=== PATIENT | male | born 1970 | race Caucasian/White ===

== ENCOUNTER 2022-07-04 16:13 | Emergency (ER) | payer MEDICAID, SELFPAY ==
[2022-07-04 16:30] VITALS: BP 214/114; PULSE 78; RESP 16; TEMP 36.8; O2SAT 97
--- NOTE | 2022-07-04 16:38 | ED.BACK ---
HPI - Back Pain/Injury General Chief Complaint: Back Pain/Injury Stated Complaint: sciatica nerve Time Seen by Provider: 07/04/22 16:38 Source: patient Mode of arrival: ambulatory Limitations: no limitations History of Present Illness HPI Narrative: 51-year-old male history of uncontrolled diabetes, CHF, and hypertension presented for complaints of right sided sciatica worsening past 3-4 days. Denies injury. He states the pain radiates the right posterior hip to the back of the knee and to the front of the lower leg down to the toes. Endorses pain is worse with walking, and brings him to tears. He has been using a cane. He endorses a history sciatica the same side, but is out of the muscle relaxers from that time. He took half of previously prescribed Tramadol and Tylenol which has improved his pain to 3/10. He denies numbness, tingling, weakness of the extremities. Denies chest pain palpitations, edema, shortness of breath, vomiting diarrhea, fevers or chills. States he has not taken any medications for chronic conditions in several months, as he is waiting for disability insurance. Does not have PCP. Related Data Home Medications Medication Instructions Recorded Confirmed No Home Medications 07/04/22 07/04/22 Allergies Allergy/AdvReac Type Severity Reaction Status Date / Time tetracycline Allergy Hives Verified 07/04/22 16:24 Review of Systems Review of Systems: CONSTITUTIONAL: Denies body aches, fever, chills EYES: Denies visual changes CARDIOVASCULAR: Denies chest pain, palpitations, or edema. RESPIRATORY: Denies cough or dyspnea. GASTROINTESTINAL: Denies abdominal pain, nausea, vomiting reports diarrhea. SKIN: Denies rash, itching, or wounds. MUSCULOSKELETAL: reports back/hip pain NEUROLOGIC: Denies headache, numbness, tingling, or weakness. All systems reviewed & are unremarkable except as noted in HPI and below [facility] Past Medical History Medical History (Updated 07/04/22 @ 17:03 by Sunita Denis APRN) CHF (congestive heart failure) Diabetes Hypertension Comments At time of signature, I have reviewed and agree with nursing past medical, surgical, social and family history unless otherwise noted. Please see nursing chart for further information. There is no relevant family history pertinent to the presenting complaint Exam Narrative: GENERAL: appears in pain; no acute distress. HEAD: Normocephalic, atraumatic. EYES: conjunctivae clear NECK: Supple. full ROM CHEST: Speaks in full sentences. No respiratory distress. HEART: Regular rate and rhythm. Normal and equal peripheral pulses. MUSC/EXT: No Vertebral point tenderness. BLEs with normal strength and sensation, normal range of motion; endorses right hip pain with walking. Nontender SI joint or hip tenderness with palpation. No open wounds, alignment normal, pulse palpable and equal bilaterally, skin warm, dry, pink. Capillary refill less than 3 seconds. Gait steady with cane. Trace bilateral pedal edema with brown discoloration to bilateral ankles. SKIN: Warm, dry, no rash. NEURO: Alert and oriented x3. Course Course Emergency Course: Patient is aware of diagnosis, understands and agrees to treatment plan. Anticipatory guidance given. Portions of this record may have been created with voice recognition software Level of Care: Express Care Visit Vital Signs Vital signs: Vital Signs Temperature 98.3 F 07/04/22 16:30 Pulse Rate 78 07/04/22 16:30 Respiratory Rate 16 07/04/22 16:30 Blood Pressure 214/114 H 07/04/22 16:30 Pulse Oximetry 97 07/04/22 16:30 Temperature 98.3 F 07/04/22 16:30 Pulse Rate 78 07/04/22 16:30 Respiratory Rate 16 07/04/22 16:30 Blood Pressure 214/114 H 07/04/22 16:30 Pulse Oximetry 97 07/04/22 16:30 Reviewed Transfer Transfered to: [facility] Transportation: Other (Private vehicle) Transfer rationale: Pt is agreeable to transfer. Requests transfer to [facility]
== END 2022-07-04 17:15 | disposition short-term general hospital (02) ==
PROVIDERS: Emergency Provider Nurse Practitioner Family
DX: I16.0 Hypertensive urgency (principal); M54.10 Radiculopathy, site unspecified; I11.0 Hypertensive heart disease with heart failure; I50.9 Heart failure, unspecified; E11.9 Type 2 diabetes mellitus without complications
CPT/HCPCS: 99212; G0463

== ENCOUNTER 2022-07-04 17:28 | Emergency (ER) | payer MEDICAID, SELFPAY ==
[2022-07-04 17:31] VITALS: BP 222/121; PULSE 77; RESP 16; TEMP 36.4; O2SAT 99
--- NOTE | 2022-07-04 17:54 | ECG_ITS ---
Measurements Intervals [place] Rate: 68 P: 30 RI: 160 QRS: -22 QRSD: 93 T: 119 QT: 435 QTc: 466 Interpretive Statements SINUS RHYTHM POOR R WAVE PROGRESSION, ANTERIOR LEADS LEFT VENTRICULAR HYPERTROPHY AND ST-T CHANGE BORDERLINE ECG NO PREVIOUS ECG AVAILABLE FOR COMPARISON Electronically Signed On 07-04-2022 18:45:57 CDT by Larry De La Cruz D.O.
--- NOTE | 2022-07-04 17:58 | ED.GENADULT ---
HPI - General Adult General Chief complaint: Recheck/Abnormal Lab/Rx Stated complaint: high blood pressure/sciatic pain Time Seen by Provider: 07/04/22 17:38 History of Present Illness HPI narrative: 51-year-old male presenting to the emergency department for evaluation of elevated blood pressure. Patient initially presented to urgent care for right hip pain/sciatica this been bothering him for the last 3 days. Patient is noncompliant with his blood pressure medication since January due to insurance issues. Patient states he takes multiple blood pressure medications but has not been taking them. Patient states he is also not been taking his metformin. Patient does not have a local primary care physician. Patient denies any associated chest pain or shortness of breath. Patient reports he is on disability for congestive heart failure, hypertension and diabetes. Related Data Home Medications Medication Instructions Recorded Confirmed amlodipine 5 mg tablet 5 mg PO DAILY 07/04/22 07/04/22 aspirin 81 mg tablet 81 mg PO DAILY 07/04/22 07/04/22 atorvastatin 40 mg tablet 40 mg PO DAILY 07/04/22 07/04/22 furosemide 20 mg tablet 20 mg PO DAILY 07/04/22 07/04/22 lisinopril 20 mg tablet 20 mg PO DAILY 07/04/22 07/04/22 metformin 500 mg tablet 500 mg PO BID 07/04/22 07/04/22 metoprolol succinate 50 mg 50 mg PO DAILY 07/04/22 07/04/22 tablet,extended release 24 hr omeprazole 20 mg tablet,delayed 20 mg PO DAILY 07/04/22 07/04/22 release spironolactone 25 mg tablet 25 mg PO DAILY 07/04/22 07/04/22 Allergies Allergy/AdvReac Type Severity Reaction Status Date / Time tetracycline Allergy Hives Verified 07/04/22 17:29 Review of Systems Review of Systems: All systems reviewed & are unremarkable except as noted in HPI and below PMF[facility] Past Medical History Medical History (Updated 07/04/22 @ 22:16 by Stephen Mcdaniels MD) CHF (congestive heart failure) Diabetes Hypertension Exam Narrative: APPEARANCE: Well appearing, no pain, no distress, well-nourished. HEAD: normocephalic, atraumatic. EYES: PERRLA/EOMI, conjunctivae clear. NECK: Supple. No adenopathy, no masses. RESPIRATORY: Airway patent, respirations nonlabored. Clear to auscultation bilaterally, no rales, rhonchi, wheezing. CARDIOVASCULAR: Regular rate and rhythm without murmurs rubs or gallops. ABDOMINAL: Soft, nontender, nondistended, normal bowel sounds MUSCULOSKELETAL: Moves all extremities. Strength/ROM intact, No edema, No calf tenderness. NEURO: Alert. Cranial nerves II through XII intact. SKIN: Warm, dry. Normal Color Course Course Emergency Course: Patient has previously been prescribed metoprolol, atorvastatin, metformin, lisinopril and furosemide. Patient had his last filled at [facility]. Patient was ordered p.o. metoprolol 100 mg, lisinopril 40 mg p.o. and Lasix 40 mg p.o.. These were the patient's home medications. Patient did have an episode where he had increased diaphoresis and had multiple bowel movements in the emergency department and stated he felt improved. Multiple times we offered the patient admission but patient was alert oriented and continued to decline to be admitted for hypertensive urgency. And patient was alert oriented denied any lightheaded or dizziness. Patient states he did feel better after having the bowel movement and denies any complaints. Patient states he was still having some sciatic pain but patient was advised on medication for pain control for home. Patient was not started on steroid due to his having uncontrolled diabetes. Patient was encouraged to have close follow-up with his primary care physician. Patient was alert oriented at time of discharge. Vital Signs Vital signs: Vital Signs Temperature 97.6 F 07/04/22 17:31 Pulse Rate 77 07/04/22 17:31 Respiratory Rate 16 07/04/22 17:31 Blood Pressure 222/121 H 07/04/22 17:31 Pulse Oximetry 99 07/04/22 17:31 Oxygen Delivery Room Air 07/04/22 17
[2022-07-04 18:12] LABS: Basophils Absolute Auto 0.1 K/mm3 (0.0-0.1); Basophils Percent Auto 0.7 % (0.2-1.2); Eosinophils Absolute Auto 0.4 K/mm3 (0-0.3); Eosinophils Percent Auto 4.8 % (0-4.4); Hematocrit 52.9 % (42.0-52.0); Hemoglobin 17.7 g/dL (14.0-18.0); Immature Granulocyte Absolute 0.03 K/mm3 (0.00-0.031); Immature Granulocyte Percent A 0.4 % (0-0.5); Lymphocytes Absolute Auto 2.11 K/mm3 (0.9-3.2); Lymphocytes Percent Auto 25.3 % (18.3-44.2); Mean Corpuscular HGB Conc 33.5 g/dl (32-36); Mean Corpuscular Hemoglobin 28.3 pg (26-34); Mean Corpuscular Volume 84.5 fl (80-100); Mean Platelet Volume 9.9 fl (7.4-10.4); Monocytes Absolute Auto 0.8 K/mm3 (0.1-0.6); Monocytes Percent Auto 9.7 % (2.6-8.5); Neutrophils Absolute Auto 4.9 K/mm3 (1.3-6.7); Neutrophils Percent Auto 59.1 % (45.5-73.1); Platelet Count Result 299 k/mm3 (150-375); Red Blood Count 6.26 M/mm3 (4.6-6.20); Red Cell Distribution Width 13.9 % (11.5-14.5); White Blood Count 8.3 K/mm3 (4.5-10.0)
[2022-07-04 18:23] LABS: Alanine Aminotransferase 42 U/L (6-50); Albumin Level 4.7 g/dL (3.5-5.1); Alkaline Phosphatase 51 U/L (38-126); Anion Gap 6 mmol/L (8-16); Aspartate Amino Transferase 40 U/L (17-59); Bilirubin,Total 0.8 mg/dL (0.2-1.3); Blood Urea Nitrogen 15 mg/dL (9-20); Calcium 9.3 mg/dL (8.4-10.2); Carbon Dioxide 28 mmol/L (22-30); Chloride 105 mmol/L (98-107); Estimated CRCL calculation 113 ml/min; Estimated Glomerular Filt Rate > 60; Glucose 125 mg/dL (65-110); Potassium 3.8 mmol/L (3.4-5.0); Sodium 139 mmol/L (137-145)
[2022-07-04 18:31] VITALS: BP 239/144; PULSE 68; RESP 16; O2SAT 98
[2022-07-04 18:46] VITALS: BP 212/135; PULSE 70; RESP 16; O2SAT 95
[2022-07-04] MEDS: lisinopriL 20 MG TABLET 40 MG PO (18:48)
[2022-07-04] MEDS: FUROSEMIDE 20 MG TABLET 40 MG PO (18:49)
[2022-07-04 18:50] VITALS: PULSE 76
[2022-07-04] MEDS: METOPROLOL SUCCINATE EXT REL 100 MG TABCR PO (18:50)
[2022-07-04] MEDS: HYDROcodone/acetaminophen (*CRX) 5-325 MG TABLET 1 TAB PO (18:52)
[2022-07-04] MEDS: CYCLOBENZAPRINE HCL 10 MG TABLET PO (18:55)
[2022-07-04] MEDS: amLODIPine BESYLATE 5 MG TABLET PO (18:56)
[2022-07-04 19:25] VITALS: BP 196/123; PULSE 70; RESP 15; O2SAT 99
[2022-07-04] MEDS: hydrALAZINE HCL 20 MG/ML VIAL 10 MG IV PUSH (19:54)
[2022-07-04] MEDS: SODIUM CHLORIDE 0.9% IV 1,000 ML 999 ML IV CONT (20:45)
--- NOTE | 2022-07-04 21:05 | PC.NURSE ---
Called and spoke with pt's . States she is on her way here.
[2022-07-04 21:07] LABS: Glucose Point of Care 183 mg/dl (65-105)
[2022-07-04 21:18] VITALS: BP 109/69; PULSE 55; RESP 18; O2SAT 98
== END 2022-07-04 21:20 | disposition home or self-care (01) ==
PROVIDERS: Emergency Provider Emergency Medicine
DX: I16.0 Hypertensive urgency (principal); I11.0 Hypertensive heart disease with heart failure; M54.10 Radiculopathy, site unspecified; T46.5X6A Underdosing of other antihypertensive drugs, initial encounter; T38.3X6A Underdosing of insulin and oral hypoglycemic [antidiabetic] drugs, initial encounter; Z91.120 Patient's intentional underdosing of medication regimen due to financial hardship; I50.9 Heart failure, unspecified; Z79.82 Long term (current) use of aspirin; E11.65 Type 2 diabetes mellitus with hyperglycemia; R94.31 Abnormal electrocardiogram [ECG] [EKG]; I51.7 Cardiomegaly
CPT/HCPCS: 36415; 80053; 82948; 85025; 93005; 96365; 96374; 99284; A9270; J0360; J7030

== ENCOUNTER 2022-07-04 22:35 | Observation (INO) | payer MEDICAID, SELFPAY ==
--- NOTE | ~2022-07-04 | CT_ITS ---
CT head without contrast Indication: Weakness Technique: Serial scans were obtained through the brain without the administration of contrast. Dose reduction technique was used on this scan by utilizing automated exposure control and iterative recon struction technique. The dose-length product (DLP) was 1362.00 mGy-cm. Findings: There is no evidence of intracranial hemorrhage, mass lesion, or acute infarct. The ventri cles and subarachnoid spaces are dilated, consistent with mild atrophy. Low attenuation regions are seen within the periventricular white matter bilaterally, likely representing changes from chronic mi crovascular ischemic disease. There is no evidence of edema, mass effect or midline shift. The visu alized paranasal sinuses and mastoid air cells are clear. Impression: No intracranial hemorrhage, mass, or acute infarct. Atrophy and chronic white matter changes, as above. Reviewed, dictated and finalized at location . Impression: No intracranial hemorrhage, mass, or acute infarct. Atrophy and chronic white matter changes, as above.
[2022-07-04 22:37] VITALS: BP 117/70; PULSE 61; RESP 18; TEMP 36.8; O2SAT 95
[2022-07-04 23:08] VITALS: BP 123/66; PULSE 59; RESP 16; O2SAT 97
[2022-07-04 23:10] VITALS: BP 123/66; PULSE 60; RESP 16; O2SAT 96
--- NOTE | 2022-07-04 23:36 | ED.RECABL ---
HPI - Recheck/Abnormal Lab/Rx General Chief Complaint: Recheck/Abnormal Lab/Rx <MATILDA Whyte Last Filed: 07/05/22 02:49> Stated Complaint: high blood pressure <MATILDA Whyte Last Filed: 07/05/22 02:49> Time Seen by Provider: 07/04/22 23:16 <MATILDA Whyte Last Filed: 07/05/22 02:49> Source: patient, family and old records reviewed <MATILDA Whyte Filed: 07/05/22 02:49> Mode of arrival: ambulatory <MATILDA Whyte Filed: 07/05/22 02:49> Limitations: no limitations <MATILDA Whyte Filed: 07/05/22 02:49> History of Present Illness HPI narrative: Patient is a 51 y/o male who presents to the ED with c/o blood pressure issues and right-sided sciatica. Patient reports having issues with right sciatic pain for the last several days. He was seen at a local urgent care yesterday for this and had blood pressures in the 200s. He was then sent here for further evaluation. Patient had been noncompliant with his home medications since the beginning of this year. He had a thorough work-up performed and was recommended to be admitted for hypertensive urgency. He was offered admission several times and declined admission. He was A&OX4, capable of making his own decisions, and his came and picked him up. Upon returning home, reports patient was weak, groggy, somewhat altered, unable to make it from the car to his house. Patient reports he was unable to walk due to the pain in his right low back radiating down his leg. He has not taken anything for pain today. Rx's for patient's home medications were sent to pharmacy. A prescription for [place] was also sent to patient's pharmacy, however he states he was unable to fill this due to the pharmacy being closed. Patient denies any bowel or bladder incontinence, numbness, fevers, chest pain, difficulty breathing, dizziness, lightheadedness, vision changes. Patient's blood pressure upon discharge was 196/123. Upon secondary arrival, blood pressure 109/69. <Rose Mary Parr PA-C - Last Filed: 07/05/22 02:49> Related Data Home Medications: Home Medications Medication Instructions Recorded Confirmed aspirin 81 mg tablet 81 mg PO DAILY 07/04/22 07/05/22 omeprazole 20 mg tablet,delayed 20 mg PO DAILY 07/04/22 07/05/22 release <Rose Mary Parr PA-C - Last Filed: 07/05/22 02:49> Allergies/Adverse Reactions: Allergies Allergy/AdvReac Type Severity Reaction Status Date / Time tetracycline Allergy Hives Verified 07/04/22 23:07 <MATILDA Whyte Last Filed: 07/05/22 02:49> Review of Systems Review of Systems: CONSTITUTIONAL: Denies fever, chills, or sweats. EYES: Denies visual changes. CARDIOVASCULAR: Denies chest pain. RESPIRATORY: Denies dyspnea. GASTROINTESTINAL: Denies abdominal pain, nausea, vomiting, or diarrhea. GENITOURINARY: Denies incontinence, dysuria or hematuria. MUSCULOSKELETAL: See HPI. NEUROLOGIC: See HPI. <Rose Mary Parr PA-C - Last Filed: 07/05/22 02:49> All systems reviewed & are unremarkable except as noted in HPI and below <Rose Mary Parr PA-C - Last Filed: 07/05/22 02:49> [facility] Past Medical History Medical History: Medical History (Updated 07/06/22 @ 11:59 by Sylwia Rahman APRN) CHF (congestive heart failure) Chronic diastolic heart failure Diabetes Hypertension <Rose Mary Parr PA-C - Last Filed: 07/05/22 02:49> Surgical History Surgical History: Surgical History (Updated 07/05/22 @ 00:48 by Rose Mary Parr PA-C) No pertinent past surgical history <Rose Mary Parr PA-C - Last Filed: 07/05/22 02:49> Family History Family History: Family History (Updated 07/05/22 @ 04:19 by Jovita Fatima RN) Mother Cancer Father Cancer <Rose Mary Parr PA-C - Last Filed: 07/05/22 02:49> Social History Social Hist
[2022-07-05] VITALS (12 sets, daily range): BP systolic 139–166; BP diastolic 72–93; PULSE 54–77; RESP 12–20; TEMP 36.1–36.4; O2SAT 95–100; BMI 41.1; BMI 40.1
--- NOTE | 2022-07-05 | ECHO_ITS ---
Patient Info Name: Ashok Dias Age: 51 years : 1970 Gender: Male Ht: 70 in Wt: 286 lbs BSA: 2.59 m2 HR: 61 bpm BP: 164 / 84 mmHg Technical Quality: Fair Exam Date: 07/05/2022 10:14 AM Exam Location: [facility] Pulmonary Exam Room: 250 Patient Status: Inpatient Admit Date: 07/05/2022 Staff Ordering Physician: Gwen Ludwig MD [employer] Project Manager: Precious Vargas RDCS Attending Provider: Gwen Ludwig MD Referring Physician: Oziel BLANCHARD; Exam Type: CA echo doppler color flow Study Info Indications - HTN Complete two-dimensional, color flow and Doppler transthoracic echocardiogram is performed. Summary 1. Complete two-dimensional, color flow and Doppler transthoracic echocardiogram is performed. 2. Left ventricular chamber dimension is normal. 3. Left ventricular systolic function is normal, estimated at 60-65%. 4. There is moderate concentric increased left ventricular wall thickness. 5. The left ventricular diastolic function is grade II diastolic dysfunction. 6. E/e' 20 is elevated. 7. Left atrial chamber dimension is mildly enlarged. 8. There is mild aortic valve sclerosis. 9. There is mild to moderate aortic valve regurgitation. 10. There is trace tricuspid valve regurgitation. 11. No pulmonary hypertension, estimated pulmonary arterial systolic pressure is 38 mmHg. 12. There is trivial pericardial effusion. Left Ventricle E/e' 20 is elevated. Left ventricular chamber dimension is normal. Left ventricular systolic function is normal, estimated at 60-65%. There is moderate concentric increased left ventricular wall thickness. The left ventricular diastolic function is grade II diastolic dysfunction. Right Ventricle Right ventricular chamber dimension is normal. Right ventricular systolic function is normal. Left Atria Left atrial chamber dimension is mildly enlarged. Right Atria Right atrial chamber dimension is normal. Aortic Valve The aortic valve is trileaflet. There is mild aortic valve sclerosis. There is no aortic valve stenosis. There is mild to moderate aortic valve regurgitation. Pulmonic Valve There is no pulmonic regurgitation. Mitral Valve There is no mitral valve stenosis. There is no mitral valve regurgitation. Tricuspid Valve There is trace tricuspid valve regurgitation. No pulmonary hypertension, estimated pulmonary arterial systolic pressure is 38 mmHg. Pericardium/Pleural There is trivial pericardial effusion. Inferior Vena Cava Normal inferior vena cava with >50% collapse upon inspiration consistent with normal right atrial pressure, 5 mmHg. Aorta The aortic root size at the sinus of Valsalva is normal. Left Ventricular Outflow Tract Name Value Normal LVOT 2D LVOT Diameter 2.1 cm LVOT Doppler LVOT Peak Gradient 7 mmHg LVOT Mean Gradient 4 mmHg LVOT VTI 28 cm LVOT VTI/AV VTI Ratio 0.9 LVOT Stroke Volume 92 ml LVOT CO 17.5 l/min LVOT CI 6.8 l/min/m2 Pulmonic Valve
[2022-07-05] MEDS: SODIUM CHLORIDE 0.9% IV 1,000 ML 999 ML IV CONT (00:37)
[2022-07-05] MEDS: LIDOCAINE 5% PATCH 1 PATCH TRANSDERM (02:19)
[2022-07-05] MEDS: KETOROLAC 30 MG/ML VIAL (*BKC) IV PUSH (02:20)
--- NOTE | 2022-07-05 02:42 | PM.IMHP ---
H&P: HPI History of Present Illness Date/Time: 07/05/22 02:42 Chief Complaint: Near-syncope Narrative: This is a 51-year-old male with past medical history significant for hypertension, morbid obesity, patient stop taking his medications in the last several months at least 5 months presents today to the emergency room after he was seen at a local urgent care for sciatica and in his vitals his systolic blood pressure was in the 200s in the emergency room patient received in the [facility] of therapy for hypertension and declined admission to the hospital his came to picking up however upon arrival to the house he was unable to exit the car was confuse and weak. Preliminary workup in the emergency room showed a blood pressure or of 109/69 patient denies any chest pain, palpitations, nausea, vomiting, no fevers, no rigors, no chills, no PND, no orthopnea. Patient is been placed in observation for further evaluation management and treatment. Review of Systems Review of Systems: Lower back pain, sciatica, uncontrolled hypertension, altered mental status. Constitutional: Constitutional: Denies chills, Denies fatigue, Denies fever(s), Denies lethargy, Denies malaise, Denies night sweats and Denies weakness Eyes: Eyes: Denies change in vision ENT: Denies dysphagia and Denies odynophagia Cardiovascular: Cardiovascular: Denies chest pain, Denies syncope, Denies leg edema, Reports lightheadedness, Denies radiating jaw, neck or arm pain and Denies palpitations Respiratory: Respiratory: Denies chest congestion, Denies cough, Denies excessive phlegm production and Denies dyspnea Gastrointestinal: Gastrointestinal: Denies abdominal pain, Denies dyspepsia, Denies heartburn, Denies nausea and Denies vomiting Genitourinary: Genitourinary: Reports no additional male genitourinary complaints and Reports as per HPI Musculoskeletal: Musculoskeletal: Reports back pain Integumentary/Breasts: Skin/Breast: Denies rash Neurologic: Reports confusion, Denies focal weakness and Denies Sensory deficit (Neuro) Psychiatric: Psychiatric: Reports no additional psychiatric complaints and Reports as per HPI Endocrine: Endocrine: Denies cold intolerance, Denies flushing, Denies heat intolerance, Denies polyphagia, Denies polydipsia and Denies palpitations Hematologic/Lymphatic: Hematologic/Lymphatic: Reports no additional hematologic/lymphatic complaints and Reports as per HPI Allergic/Immunologic: Allergic/Immunologic: Reports no additional allergic/immunologic complaints and Reports as per HPI [facility] Past Medical History Medical History (Updated 07/05/22 @ 04:49 by Gwen Ludwig MD) CHF (congestive heart failure) Diabetes Hypertension Surgical History Surgical History (Updated 07/05/22 @ 00:48 by Rose Mary Parr PA-C) No pertinent past surgical history Family History Family History (Updated 07/05/22 @ 04:19 by Jovita Fatima RN) Mother Cancer Father Cancer Social History Social History (Updated 07/05/22 @ 00:49 by Rose Mary Parr PA-C) Smoking status: Never smoker Alcohol intake: never Substance use: never Lack of Transportation: No Lack of Food: Sometimes True Current Housing: I Have Housing Concerned About Future Housing: YES Difficulty Paying Gas/Electric Bills: YES Difficulty Paying for Meds: YES Currently Unemployed: No Education: Bachelor's Degree Difficulty w/ Childcare or Family Care: No Spiritual care concerns: No Meds Home Medications and Allergies Home Medications Medication Instructions Recorded Confirmed Type amlodipine 5 mg tablet 5 mg PO DAILY 30 days #30 tabs 07/04/22 07/05/22 Rx aspirin 81 mg tablet 81 mg PO DAILY 07/04/22 07/05/22 History atorvastatin 40 mg tablet 40 mg PO DAILY 07/04/22 07/05/22 History cyclobenzaprine 10 mg tablet 10 mg PO BID PRN muscle spasm #20 07/04/22 07/05/22 Rx tabs furosemide 20 mg tablet 20 mg PO DAILY 07/04/22
--- NOTE | 2022-07-05 03:57 | ADMGEN ---
This patient, Ashok Dias, was admitted to Medical Room 250-01. Patient/family oriented to hospital policies and general routines including ID bracelet, bed and alarms, visiting hours, pain management, procedures, bathroom and other care routines, personal items, smoking policy, room service/diet, and visiting hours. Information on how to activate the Rapid Response Team has been discussed. Patient/Family are encouraged to report perceived risks to care and to ask questions if they do not understand what they are told or what they should do.
[2022-07-05 08:20] LABS: Glucose Point of Care 129 mg/dl (65-105)
[2022-07-05] MEDS: ASPIRIN 81 MG ENTERIC TABLET PO (08:56)
[2022-07-05] MEDS: ATORVASTATIN 40 MG TABLET PO (08:56)
[2022-07-05] MEDS: PANTOPRAZOLE 40 MG TABLET PO (08:56)
[2022-07-05] MEDS: METOPROLOL SUCCINATE EXT REL 50 MG TABCR PO (08:57)
[2022-07-05] MEDS: FUROSEMIDE 20 MG TABLET PO (08:57)
[2022-07-05] MEDS: lisinopriL 20 MG TABLET PO (08:58)
[2022-07-05] MEDS: SPIRONOLACTONE 25 MG TABLET PO (08:58)
[2022-07-05] MEDS: amLODIPine BESYLATE 5 MG TABLET PO (08:58)
--- NOTE | 2022-07-05 09:52 | PM.IMPN ---
Progress Note: A&P Assessment and Plan (1) Uncontrolled hypertension: Code(s): I10 - Essential (primary) hypertension Status: Acute Assessment and Plan: Blood pressure up to 239/144 in the emergency department that reportedly dropped to 109/69 after patient received Dexter and his home blood pressure medications. Patient reportedly has not been taking medications for several months due to moving, running out, and not having a PCP locally. Antihypertensives-amlodipine 5 mg daily, furosemide 20 mg daily, lisinopril 20 mg daily, spironolactone 25 mg daily, and metoprolol succinate 50 mg daily resumed overnight. Judiciously lower blood pressure and monitor neuro status to avoid hypoperfusion. Echocardiogram pending. Check lipid panel. discussed diet, lifestyle modifications, risks of uncontrolled hypertension, and compliance with medications. (2) Morbid obesity with BMI of 45.0-49.9, adult: Code(s): E66.01 - Morbid (severe) obesity due to excess calories; Z68.42 - Body mass index [BMI] 45.0-49.9, adult Status: Chronic Assessment and Plan: Lifestyle and diet modification. 1800 calorie restricted diet (3) Chronic lower back pain: Qualifiers: Back pain laterality: right Sciatica presence: with sciatica Sciatica laterality: sciatica of right side Qualified Code(s): M54.41 - Lumbago with sciatica, right side; G89.29 - Other chronic pain Code(s): M54.50 - Low back pain, unspecified; G89.29 - Other chronic pain Status: Chronic Assessment and Plan: Acute worsening of chronic lower back pain with radiculopathy to right lower extremity. Patient reports he has had previous issues with low back pain and sciatica to both right and left side in the past and previous imaging at an outside facility showed no spinal or vertebral abnormality. Will treat with supportive care- tylenol p.r.n. and Flexeril 5 mg Q 8 hours p.r.n. consider further imaging if pain worsens or does not improve with conservative management. No paresthesia or loss of bladder/bowel function. (4) T2DM (type 2 diabetes mellitus): Qualifiers: Diabetes mellitus snf insulin use: without snf use Diabetes mellitus complication status: without complication Qualified Code(s): E11.9 - Type 2 diabetes mellitus without complications Code(s): E11.9 - Type 2 diabetes mellitus without complications Status: Chronic Assessment and Plan: Patient reports history of diabetes previously treated with metformin immediate release 500 mg b.i.d. which he has not been taking due to GI complaints. Check A1c. Accu-Cheks AC and HS. Insulin sliding scale t.i.d. with meals. (5) Hypertensive encephalopathy: Code(s): I67.4 - Hypertensive encephalopathy Status: Acute Assessment and Plan: CT head reviewed and without acute findings. Continue to monitor neuro status. Appears at baseline. Previous confusion may have been secondary to narcotics given for lower back pain in the emergency department. Time Spent With Patient Time: 35 minutes time spent with patient assessment, patient education, review of labs, vitals and nursing documentation. All questions answered to the best of my ability. Subjective Date/time seen: 07/05/22 09:52 Interval history: Patient is a 51 old male hypertension, morbid obesity, sciatica and diabetes type 2 who is seen for follow-up of uncontrolled hypertension in near-syncope. Patient reports sciatica pain to his right lower extremity starting at his buttocks and extending down to his mid calf. He has had intermittent numbness to his right great toe that is not present at this time. He reports prior issues of sciatica that has been treated with Flexeril in the past. He recently moved in March and has been unpacking in his new home, with a lot of lifting and bending. He denies c/o chest pain, SOB, palpitations, diplopia, TOLENT[place], paresthesia to face or e
[2022-07-05] MEDS: CYCLOBENZAPRINE HCL 10 MG TABLET PO ×2 (11:14→17:43)
[2022-07-05 12:21] LABS: Glucose Point of Care 153 mg/dl (65-105)
[2022-07-05 17:04] LABS: Glucose Point of Care 184 mg/dl (65-105)
[2022-07-05] MEDS: traMADol HCL (*CRX) 25 MG TABLET PO (18:44)
[2022-07-05 20:06] LABS: Glucose Point of Care 156 mg/dl (65-105)
[2022-07-06] VITALS (7 sets, daily range): BP systolic 169; BP diastolic 91; PULSE 53–77; RESP 18; TEMP 36.4; O2SAT 97
[2022-07-06] MEDS: CYCLOBENZAPRINE HCL 10 MG TABLET PO (03:29)
[2022-07-06] MEDS: traMADol HCL (*CRX) 25 MG TABLET PO (03:29)
[2022-07-06 05:16] LABS: Hematocrit 50.7 % (42.0-52.0); Hemoglobin 16.5 g/dL (14.0-18.0); Mean Corpuscular HGB Conc 32.5 g/dl (32-36); Mean Corpuscular Hemoglobin 28.2 pg (26-34); Mean Corpuscular Volume 86.7 fl (80-100); Platelet Count Result 242 k/mm3 (150-375); Red Blood Count 5.85 M/mm3 (4.6-6.20); Red Cell Distribution Width 14.2 % (11.5-14.5); White Blood Count 7.6 K/mm3 (4.5-10.0)
[2022-07-06 05:22] LABS: Hemoglobin A1C 6.5 % (<5.7)
[2022-07-06 05:28] LABS: Anion Gap 5 mmol/L (8-16); Blood Urea Nitrogen 18 mg/dL (9-20); Calcium 8.6 mg/dL (8.4-10.2); Carbon Dioxide 28 mmol/L (22-30); Chloride 106 mmol/L (98-107); Cholesterol 117 mg/dL (0-200); Estimated CRCL calculation 102 ml/min; Estimated Glomerular Filt Rate > 60; Glucose 107 mg/dL (65-110); HDL Direct 50 mg/dL; Potassium 3.8 mmol/L (3.4-5.0); Sodium 139 mmol/L (137-145); Triglycerides 95 mg/dL (<150)
[2022-07-06 05:35] LABS: NT Pro B Type Natriuretic Pept 290 pg/mL (19.9-100)
[2022-07-06 05:39] LABS: LDL Cholesterol Direct 49 mg/dL
[2022-07-06 07:54] LABS: Glucose Point of Care 115 mg/dl (65-105)
--- NOTE | 2022-07-06 07:54 | PM.DS ---
DS: Admitting Diagnosis Discharge Date 07/06/2022 Admitting Diagnosis Uncontrolled hypertension Morbid obesity with BMI of 45.0-49.9, adult Chronic lower back pain T2DM (type 2 diabetes mellitus) Hypertensive encephalopathy DS: Discharge Diagnosis Discharge Diagnosis (1) Uncontrolled hypertension: Code(s): I10 - Essential (primary) hypertension Status: Acute Assessment and Plan: Blood pressure up to 239/144 in the emergency department that reportedly dropped to 109/69 after patient received Fletcher and his home blood pressure medications. Patient reportedly has not been taking medications for several months due to moving, running out, and not having a PCP locally. Antihypertensives-amlodipine 5 mg daily, furosemide 20 mg daily, lisinopril 20 mg daily, spironolactone 25 mg daily, and metoprolol succinate 50 mg daily resumed upon admission. Judiciously lower blood pressure and monitor neuro status to avoid hypoperfusion. Echocardiogram showed moderate LVH and grade 2 diastolic dysfunction. lipid panel with LDL 49, HDL 50 and triglycerides 95. discussed diet, lifestyle modifications, risks of uncontrolled hypertension, and compliance with medications. BP 150-169/90s still and lisinopril dose was increased to 40 mg PO daily on the day of discharge. He was counseled to check his blood pressure daily and record readings for PCP follow-up. (2) Morbid obesity with BMI of 45.0-49.9, adult: Code(s): E66.01 - Morbid (severe) obesity due to excess calories; Z68.42 - Body mass index [BMI] 45.0-49.9, adult Status: Chronic Assessment and Plan: Lifestyle and diet modification. 1800 calorie restricted diet (3) Chronic lower back pain: Qualifiers: Back pain laterality: right Sciatica laterality: sciatica of right side Sciatica presence: with sciatica Qualified Code(s): M54.41 - Lumbago with sciatica, right side; G89.29 - Other chronic pain Code(s): M54.50 - Low back pain, unspecified; G89.29 - Other chronic pain Status: Chronic Assessment and Plan: Acute worsening of chronic lower back pain with radiculopathy to right lower extremity. Patient reports he has had previous issues with low back pain and sciatica to both right and left side in the past and previous imaging at an outside facility showed no spinal or vertebral abnormality. Treated with supportive care- tylenol p.r.n., tramadol 25 mg Q6 hours p.r.n and Flexeril 5 mg Q 8 hours p.r.n. If patient does not improve with conservative care, consider further imaging outpatient. No paresthesia or loss of bladder/bowel function. He was counseled on activity restrictions and stretching exercises. (4) T2DM (type 2 diabetes mellitus): Qualifiers: Diabetes mellitus complication status: without complication Diabetes mellitus longterm insulin use: without terminal clerk use Qualified Code(s): E11.9 - Type 2 diabetes mellitus without complications Code(s): E11.9 - Type 2 diabetes mellitus without complications Status: Chronic Assessment and Plan: Patient reports history of diabetes previously treated with metformin immediate release 500 mg b.i.d. which he has not been taking due to GI complaints. A1c 6.5%. Accu-Cheks AC and HS. Insulin sliding scale t.i.d. with meals. Prescription for metformin XL 500 mg daily given at discharge. He was counseled on diet and weight loss. (5) Hypertensive encephalopathy: Code(s): I67.4 - Hypertensive encephalopathy Status: Acute Assessment and Plan: CT head reviewed and without acute findings. Neuro status at baseline. Previous confusion may have been secondary to narcotics given for lower back pain in the emergency department. (6) Chronic diastolic heart failure: Code(s): I50.32 - Chronic diastolic (congestive) heart failure Status: Acute Assessment and Plan: Chronic, grade 2 diastolic dysfunction, moderate LVH, EF 60-65
[2022-07-06] MEDS: lisinopriL 20 MG TABLET 40 MG PO (09:43)
[2022-07-06] MEDS: PANTOPRAZOLE 40 MG TABLET PO (09:43)
[2022-07-06] MEDS: METOPROLOL SUCCINATE EXT REL 50 MG TABCR PO (09:44)
[2022-07-06] MEDS: ASPIRIN 81 MG ENTERIC TABLET PO (09:44)
[2022-07-06] MEDS: amLODIPine BESYLATE 5 MG TABLET PO (09:44)
[2022-07-06] MEDS: ATORVASTATIN 40 MG TABLET PO (09:45)
[2022-07-06] MEDS: SPIRONOLACTONE 25 MG TABLET PO (09:45)
[2022-07-06] MEDS: FUROSEMIDE 20 MG TABLET PO (09:45)
[2022-07-06 12:03] LABS: Glucose Point of Care 155 mg/dl (65-105)
== END 2022-07-06 13:40 | disposition home or self-care (01) ==
LOC: ANHED 07-05 02:39 → ANH3MEDSUR 07-05 03:17 → ANH2MED 07-05 03:20
PROVIDERS: Nurse Practitioner Family; Admitting Provider Internal Medicine; Emergency Provider Physician Assistant; Visit Provider Internal Medicine
DX: I11.0 Hypertensive heart disease with heart failure (principal); I50.32 Chronic diastolic (congestive) heart failure; E66.01 Morbid (severe) obesity due to excess calories; Z68.41 Body mass index [BMI] 40.0-44.9, adult; M54.41 Lumbago with sciatica, right side; G89.29 Other chronic pain; E11.9 Type 2 diabetes mellitus without complications; I67.4 Hypertensive encephalopathy; Z91.148 Patient's other noncompliance with medication regimen for other reason; R09.89 Other specified symptoms and signs involving the circulatory and respiratory systems; R53.1 Weakness; I08.3 Combined rheumatic disorders of mitral, aortic and tricuspid valves; Z79.82 Long term (current) use of aspirin; Z79.891 Long term (current) use of opiate analgesic; Z79.84 Long term (current) use of oral hypoglycemic drugs; Z79.899 Other long term (current) drug therapy
CPT/HCPCS: 36415; 70450; 80048; 80053; 80061; 82948; 83036; 83880; 85025; 85027; 93005; 93306; 96361; 96365; 96374; 96375; 99285; A9270; G0378; G0379; J0131; J0360; J1885; J7030

== ENCOUNTER 2022-09-25 14:30 | Outpatient (RCR) | payer MEDICARE, OTHER, MEDICAID, SELFPAY | END 2022-11-18 11:23 | disposition home or self-care (01) | LOC: ANHDMC 14:30 | PROVIDERS: PCP Internal Medicine; Visit Provider Internal Medicine | DX: E11.9 Type 2 diabetes mellitus without complications (principal); I10 Essential (primary) hypertension; E66.01 Morbid (severe) obesity due to excess calories; Z68.42 Body mass index [BMI] 45.0-49.9, adult; Z91.148 Patient's other noncompliance with medication regimen for other reason; Z71.89 Other specified counseling | CPT/HCPCS: G0108; G0109 ==

== ENCOUNTER 2022-10-08 14:30 | Outpatient (RCR) | payer MEDICARE, OTHER, MEDICAID, SELFPAY ==
--- NOTE | 2022-08-27 15:07 | PTOPEVAL1 ---
Assessment and note entered by Myra Gamble, PT Evaluation Information Assessment Status Evaluation Diagnosis weakness, falls Onset March 2022 Subjective Information Patient referred to physical therapy due to weakness and history of falls. Patient reports 3 falls in the past month requiring paramedics to get him off the floor, most recent one occured when trying to pick object up off of floor. Patient reports that he feels very unsteady on his feet, is unable to get off the floor, and is unable to walk long distances in community at this time. Patient denies pain at this time. Patient has history of sciatic nerve pain, present at time of eval and states that when his sciatic pain flares up he will spend weeks in bed and then will have a decline in mobility following. Patients home has 6 steps to enter home however they have a basement with a full flight of stairs, basement has rooms with hobbies in it. ADDITIONAL INFO: Spoke to Jose at Dr Triplett office regarding BP readings 219/108 and 180/108 and than Patient reports he has not taken meds in over a week. Patient educated to begin taking medications and to check blood pressure before exercises and to hold exercise if blood pressure is greater than 180/90. Educated Patient and MD office that BP will be checked at start of every PT session and throughout to ensure safe progression of exercises. PT voices concern to MD office that exercise progression will be challenging if blood pressure is not controlled or medications are not taken. Reported Pain Level Pain Score 0: Self Report Assessment PT Clinical Summary Patient presents to physical therapy at this time due to weakness, history of falls, and history of sciatica. Upon initiation of evaluation patient reports poor med compliance as states he has not taken his medications in over a week. BP 219/108 and 180/108, denies blurry vision/headache/chest pain/word finding difficulties. Patient educated regarding importance of med compliance and daily BP checks, educated that PT will not be able to be provided if his blood pressure is not within a therapeutic range. Patient presents with BLE weakness B hip flexors 3-/5, B hip abductors 3/5. Patient exhibits tigh
--- NOTE | 2022-08-27 15:09 | OPREHPOC ---
Outpatient Therapy Plan of Care This is a Multidisciplinary Plan of Care that may contain components documented by all disciplines (PT, OT, and ST.) PT Problem 1 PT Problem #1 Knowledge Deficit PT Goal 1 Goal 1. Patient will demonstrate independence with home exercise program and hold exercise if BP greater than 180/90 PT Problem 2 PT Problem #2 Impaired Gait PT Goal 1 Goal 1. Patient will ambulate for 8 minutes in gym without AD due to improvements in endurance and strength with vitals in therapeutic range 2. Patient will ascend/descend 14 stairs with 1 rail and supervision with vital in therapeutic range PT Problem 3 PT Problem #3 Impaired Strength PT Goal 1 Goal 1. Patient will perform 15 reps supine bilateral straight leg raise. 2. Patient will perform 15 reps sidelying hip abduction. 3. Patient will perform bilateral single leg stance 10 seconds PT Problem 4 PT Problem #4 Impaired Balance PT Goal 1 Goal 1. Patient will report no falls. 2. 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 PT Problem 5 PT Problem #5 Impaired Range of Motion PT Goal 1 Goal 1. Patient will increase R ankle DF to 10 degrees
--- NOTE | 2022-09-20 13:52 | PCPTNOTE ---
Pt cancelled his appt today stating he can make it .
--- NOTE | 2022-09-24 13:52 | PCPTNOTE ---
Patient did not show for therapy appointment. Patient called and states he got his appointment times confused and would call to reschedule his re evaluation at later time/date.
--- NOTE | 2022-10-08 15:08 | PTOPDC ---
Assessment and note entered by Myra Gamble, PT Evaluation Information Assessment Status Discharge Diagnosis weakness, falls Onset March 2022 Subjective Information patient reports fair compliance with home exercises. patient reports improvements in strength and balance, reports he feels ready to DC from PT at this time. Reported Pain Level Pain Score 0: Self Report Assessment PT Clinical Summary Patient has been participating in PT services to address falls and generalized weakness. Patient has met all goals at this time, tolerating 8 minutes gait with independence, improved lower extremity strength and balance, and decreased reports of falls. Patient is able to independently ascend/descend stairs to enter home without difficulty. Patient has home exercise program at home and is instructed to continue 1-2 times daily . educated regarding benefit of walking as exercise. Plan of Care PT Services Indicated No
== END 2022-10-22 13:47 | disposition home or self-care (01) ==
LOC: ANHPT 14:30
PROVIDERS: PCP Internal Medicine; Visit Provider Internal Medicine
DX: M54.50 Low back pain, unspecified (principal); R29.898 Other symptoms and signs involving the musculoskeletal system; R53.1 Weakness; G89.29 Other chronic pain; Z91.81 History of falling
CPT/HCPCS: 97110; 97116; 97163; 97530; 99199

== ENCOUNTER 2022-12-05 14:05 | Outpatient (CLI) | payer OTHER, MEDICAID, SELFPAY ==
[2022-12-05 18:42] LABS: Alanine Aminotransferase 51 U/L (6-50); Albumin Level 3.9 g/dL (3.5-5.1); Alkaline Phosphatase 73 U/L (38-126); Anion Gap 6 mmol/L (8-16); Aspartate Amino Transferase 42 U/L (17-59); Bilirubin,Total 0.7 mg/dL (0.2-1.3); Blood Urea Nitrogen 14 mg/dL (9-20); Calcium 8.9 mg/dL (8.4-10.2); Carbon Dioxide 29 mmol/L (22-30); Chloride 100 mmol/L (98-107); Cholesterol 140 mg/dL (0-200); Estimated Glomerular Filt Rate > 60; Glucose 242 mg/dL (65-110); HDL Direct 57 mg/dL; Potassium 4.2 mmol/L (3.4-5.0); Sodium 135 mmol/L (137-145); Triglycerides 116 mg/dL (<150)
[2022-12-05 18:54] LABS: LDL Cholesterol Direct 62 mg/dL
[2022-12-05 20:01] LABS: MALB Creatinine Ratio 142.9 mg/g (0-30); Microalbumin Urine Random 117.2 mg/L (0-16.7)
[2022-12-05 20:43] LABS: Hemoglobin A1C 9.1 % (<5.7)
[2022-12-09 07:22] LABS: Apolipoprotein B 58 mg/dL (<90)
== END 2022-12-05 14:06 | disposition home or self-care (01) ==
LOC: ANHGOSHLAB 14:07
PROVIDERS: PCP Internal Medicine; Visit Provider Internal Medicine
DX: E11.9 Type 2 diabetes mellitus without complications (principal); E66.01 Morbid (severe) obesity due to excess calories; I50.32 Chronic diastolic (congestive) heart failure; Z68.42 Body mass index [BMI] 45.0-49.9, adult
CPT/HCPCS: 36415; 80053; 80061; 82043; 82172; 83036

== ENCOUNTER 2022-12-19 14:52 | Outpatient (RCR) | payer OTHER, MEDICAID, SELFPAY | END 2023-01-06 11:29 | disposition home or self-care (01) | LOC: ANHDMC 14:52 | PROVIDERS: PCP Internal Medicine; Visit Provider Internal Medicine | DX: E11.9 Type 2 diabetes mellitus without complications (principal); I10 Essential (primary) hypertension; E66.01 Morbid (severe) obesity due to excess calories; Z68.42 Body mass index [BMI] 45.0-49.9, adult; Z91.148 Patient's other noncompliance with medication regimen for other reason; Z71.89 Other specified counseling | CPT/HCPCS: G0109 ==

== ENCOUNTER 2023-02-02 11:56 | Emergency (ER) | payer OTHER, MEDICAID, SELFPAY | END 2023-02-02 12:28 | disposition left against medical advice (07) | LOC: EXPGOSH 11:59 | PROVIDERS: Emergency Provider Registered Nurse; PCP Internal Medicine | DX: Z53.21 Procedure and treatment not carried out due to patient leaving prior to being seen by health care provider (principal) | CPT/HCPCS: 99199 ==

== ENCOUNTER 2023-10-16 15:50 | Outpatient (CLI) | payer OTHER, MEDICAID, SELFPAY ==
[2023-10-16 17:59] LABS: Basophils Absolute Auto 0.1 K/mm3 (0.0-0.1); Basophils Percent Auto 0.8 % (0.2-1.2); Eosinophils Absolute Auto 0.4 K/mm3 (0-0.3); Eosinophils Percent Auto 5.4 % (0-4.4); Hematocrit 51.9 % (42.0-52.0); Hemoglobin 16.8 g/dL (14.0-18.0); Immature Granulocyte Absolute 0.01 K/mm3 (0.00-0.031); Immature Granulocyte Percent A 0.1 % (0-0.5); Lymphocytes Absolute Auto 2.05 K/mm3 (0.9-3.2); Lymphocytes Percent Auto 26.9 % (18.3-44.2); Mean Corpuscular HGB Conc 32.4 g/dl (32-36); Mean Corpuscular Hemoglobin 29.1 pg (26-34); Mean Corpuscular Volume 89.9 fl (80-100); Mean Platelet Volume 10.5 fl (7.4-10.4); Monocytes Absolute Auto 0.7 K/mm3 (0.1-0.6); Monocytes Percent Auto 8.9 % (2.6-8.5); Neutrophils Absolute Auto 4.4 K/mm3 (1.3-6.7); Neutrophils Percent Auto 57.9 % (45.5-73.1); Platelet Count Result 217 k/mm3 (150-375); Red Blood Count 5.77 M/mm3 (4.6-6.20); Red Cell Distribution Width 13.5 % (11.5-14.5); White Blood Count 7.6 K/mm3 (4.5-10.0)
[2023-10-16 18:07] LABS: Alanine Aminotransferase 47 U/L (6-50); Albumin Level 3.9 g/dL (3.5-5.1); Alkaline Phosphatase 56 U/L (38-126); Anion Gap 9 mmol/L (4-12); Aspartate Amino Transferase 53 U/L (17-59); Bilirubin,Total 0.7 mg/dL (0.2-1.3); Blood Urea Nitrogen 15 mg/dL (9-20); Calcium 8.8 mg/dL (8.4-10.2); Carbon Dioxide 28 mmol/L (22-30); Chloride 97 mmol/L (98-107); Cholesterol 117 mg/dL (0-200); Estimated Glomerular Filt Rate > 60; Glucose 226 mg/dL (65-110); HDL Direct 49 mg/dL; Potassium 4.4 mmol/L (3.4-5.0); Sodium 134 mmol/L (137-145); Triglycerides 143 mg/dL (<150)
[2023-10-16 18:17] LABS: LDL Cholesterol Direct 40 mg/dL
[2023-10-16 18:24] LABS: Creatinine Urine 135.7 mg/dL
[2023-10-16 18:29] LABS: MALB Creatinine Ratio 34.6 mg/g (0-30); Microalbumin Urine Random 46.9 mg/L (0-16.7)
[2023-10-16 18:36] LABS: Hemoglobin A1C 9.8 % (<5.7); Prostate Specific Antigen 0.4 ng/mL (< OR = 4.0)
== END 2023-10-16 15:51 | disposition home or self-care (01) ==
LOC: ANHGOSHLAB 15:52
PROVIDERS: PCP Nurse Practitioner Family; Visit Provider Nurse Practitioner Family
DX: E11.9 Type 2 diabetes mellitus without complications (principal); I10 Essential (primary) hypertension; Z12.5 Encounter for screening for malignant neoplasm of prostate
CPT/HCPCS: 36415; 80053; 80061; 82043; 82607; 83036; 84153; 84443; 85025; G0103

== ENCOUNTER 2024-03-01 15:45 | Emergency (ER) | payer OTHER, MEDICAID, SELFPAY ==
[2024-03-01 17:31] VITALS: BP 185/85; PULSE 66; RESP 18; TEMP 36.4; O2SAT 98
--- NOTE | 2024-03-01 18:21 | ED.SKABFB ---
HPI - Skin/Abscess/Foreign Bdy General Chief complaint: Skin/Abscess/Foreign Body Stated complaint: Rash Time Seen by Provider: 03/01/24 18:13 Source: patient, family () and RN notes reviewed Mode of arrival: ambulatory Limitations: no limitations History of Present Illness HPI narrative: Patient presents today complaining of a reddened area to the left forearm that was noted last night the size of a quarter. It was noted today to be significantly larger. Denies pain or itching, but states it is warm. Patient is diabetic. States he has several scratches on his arm from his caths at home. States the like to chew on his arm. He is not up-to-date on his tetanus vaccine, but declines it today. Related Data Home Medications ?Medication ?Instructions ?Recorded ?Confirmed ?Last Taken ?Type aspirin 81 mg tablet 81 mg PO DAILY 07/04/22 03/01/24 Unknown History meclizine 25 mg tablet (Dramamine 25 mg PO BID PRN dizziness 12/10/23 03/01/24 Unknown History (meclizine)) sodium citrate 230 mg chewable mg PO ONCE PRN nausea 12/10/23 12/10/23 Unknown History tablet (Nauzene Upset Stomach-Nausea) Allergies Allergy/AdvReac Type Severity Reaction Status Date / Time tirzepatide (From Eliazar) AdvReac Intermediate Nausea and Verified 03/01/24 17:22 Vomiting tetracycline AdvReac Mild Hives Verified 03/01/24 17:22 metformin AdvReac Intermediate Diarrhea Uncoded 03/01/24 17:22 Review of Systems Review of Systems: CONSTITUTIONAL: Denies body aches, fever, chills, or sweats. EYES: Denies visual changes, redness, or discharge. ENT: Denies rhinorrhea, congestion, sore throat, or otalgia. CARDIOVASCULAR: Denies chest pain, palpitations, or edema. RESPIRATORY: Denies cough or dyspnea. GASTROINTESTINAL: Denies abdominal pain, nausea, vomiting, or diarrhea. GENITOURINARY: Denies dysuria or hematuria. SKIN: + reddened area to left forearm MUSCULOSKELETAL: Denies back pain, joint pain, or myalgia. NEUROLOGIC: Denies headache, numbness, tingling, or weakness. PSYCH: Denies depression or anxiety. [facility] Past Medical History Medical History TIA (transient ischemic attack) Chronic diastolic heart failure Hypertension Diabetes CHF (congestive heart failure) Surgical History Surgical History No pertinent past surgical history Family History Family History Mother Cancer Father Cancer Social History Social History Smoking status: Never smoker Alcohol intake: never Substance use: never Lack of Transportation: No Lack of Food: Sometimes True Current Housing: I Have Housing Concerned About Future Housing: YES Difficulty Paying Gas/Electric Bills: YES Difficulty Paying for Meds: YES Currently Unemployed: No Education: Bachelor's Degree Difficulty w/ Childcare or Family Care: No Spiritual care concerns: No Comments At time of signature, I have reviewed and agree with nursing past medical, surgical, social and family history unless otherwise noted. Please see nursing chart for further information. There is no relevant family history pertinent to the presenting complaint Exam Narrative: GENERAL: Well-appearing, well-nourished, and in no acute distress. HEAD: Normocephalic, atraumatic. EYES: EOMI. No redness or drainage. Conjunctivae normal. ENT: Mucous membranes pink and moist. NECK: Normal AROM. CHEST: No respiratory distress. EXTREMITIES: Left forearm: Reddened, indurated area to the left forearm measuring 5 x 4 cm. Nontender to palpation. No fluctuance noted. No drainage noted. No red streaking noted. No edema. Distal sensation intact. Capillary refill normal. Radial pulse normal. Full range of motion of the arm noted. One superficial scabbed area measuring 1 mm x 10.5 cm adjacent to the reddened area. Several scars similar to this scattered over patient's forearm. SKIN: Warm, dry, no rash. Capillary refill normal. Normal skin turgor. NEURO: No focal deficits. Alert and oriented x3. Gait steady. PSYCH: Normal affect. No signs of depression or anxiety. Course Course Level of Care: Express Care Visit Vital Signs Vital signs: Vital Signs Temperature 97.5 F L 03/01/24 17:31 Pulse Rate 66 03/01/24 17:31 Respiratory Rate 18 03/01/24 17:31 Blood Pressure 185/85 H 03/01/24 17:31 Pulse Oximetry 98 03/01/24 17:31 Oxygen Delivery Room Air 03/01/24 17:31 Temperature 97.5 F L 03/01/24 17:31 Pulse Rate 66 03/01/24 17:31 Respiratory Rate 18 03/01/24 17:31 Blood Pressure 185/85 H 03/01/24 17:31 Pulse Oximetry 98 03/01/24 17:31 Oxygen Delivery Room Air 03/01/24 17:31 Reviewed MDM - Skin/Abscess/Foreign Bdy MDM Narrative Medical decision making narrative: Patient will be treated with Augmentin for cat scratch/bite. He declines tetanus shot after informed consent discussed. Anticipatory guidance given. ED precautions given. Differential Diagnosis Differential diagnosis: Likely cellulitis, impetigo and other (Cat scratch, cat bite) Critical Care Time Critical Care Time Critical Care Time: No Discharge Plan Discharge Clinical Impression: Cellulitis of forearm, left Patient Disposition: Home, Self-Care Condition: Stable Instructions: Antibiotic Form, Cellulitis (ED) Additional Instructions: Please start the Augmentin and take as directed. Take Tylenol if needed for pain. Follow-up with your PCP in 3 days if symptoms are not improving. As discussed, please go to the ER immediately if you notice any red streaking up your arm or start running a fever. Your blood pressure was elevated above 120/80 today at Urgent Care. This puts you above the threshold for follow up. Please schedule a followup visit with your personal physician as soon as possible, for further evaluation and treatment. Even blood pressure exceeding 120/80 may indicate pre-hypertension. Patient Language: Kazakh Prescriptions: New amoxicillin-pot clavulanate 875-125 mg tablet 1 tablet PO Q12H 7 Days Qty: 14 0RF No Action meclizine [Dramamine (meclizine)] 25 mg tablet 25 mg PO BID PRN (Reason: dizziness) Nauzene Upset Stomach-Nausea 230 mg tablet,chewable PO ONCE PRN (Reason: nausea) metformin 500 mg tablet extended release 24 hr 500 mg PO BID Qty: 180 0RF amlodipine 5 mg tablet 5 mg PO DAILY Qty: 90 3RF lisinopril 40 mg tablet 40 mg PO DAILY Qty: 90 3RF atorvastatin 40 mg tablet 40 mg PO DAILY Qty: 90 3RF furosemide 20 mg tablet 20 mg PO DAILY Qty: 90 3RF metoprolol succinate 50 mg tablet extended release 24 hr 50 mg PO DAILY Qty: 90 3RF spironolactone 25 mg tablet 25 mg PO DAILY 30 Days Qty: 90 3RF omeprazole 20 mg tablet,delayed release (DR/EC) 20 mg PO DAILY Qty: 90 3RF bupropion HCl 300 mg tablet extended release 24 hr 300 mg PO QAM Qty: 90 0RF (DME) FreeStyle Judith 3 [place] Misc See Rx Instructions .Route Qty: 1 0RF Rx Instructions: As directed (DME) FreeStyle Judith 3 Sensor Device See Rx Instructions .Route Qty: 6 3RF Rx Instructions: As directed aspirin 81 mg Tablet 81 mg PO DAILY dapagliflozin propanediol [Farxiga] 10 mg tablet 10 mg PO DAILY Qty: 90 1RF glimepiride 2 mg tablet 2 mg PO BID Qty: 180 0RF Rx Instructions: administer with breakfast Follow-up/Referrals: Vandana Pierre, GIANNA [Primary Care Provider] - Time of Disposition: 18:20
== END 2024-03-01 18:23 | disposition home or self-care (01) ==
PROVIDERS: Emergency Provider Nurse Practitioner; PCP Nurse Practitioner Family
DX: L03.114 Cellulitis of left upper limb (principal); I11.0 Hypertensive heart disease with heart failure; I50.32 Chronic diastolic (congestive) heart failure; E11.9 Type 2 diabetes mellitus without complications; Z86.73 Personal history of transient ischemic attack (TIA), and cerebral infarction without residual deficits; Z79.82 Long term (current) use of aspirin
CPT/HCPCS: 99213; G0463

== ENCOUNTER 2024-09-17 10:13 | Outpatient (CLI) | payer OTHER, MEDICAID, SELFPAY ==
--- OUTSIDE RECORDS SUMMARY | 2024-09-17 10:17 | XMS_ITS ---
Author Name JOHN HESS M.D. Address [address] [place] [address] Phone [phone] Organization [facility] ([facility]) Care Team Providers Care Race Board Attendant Name Role Phone JOHN HESS Unavailable [phone] Darrel Cavanaugh Unavailable [phone] Reason for Referral Not Available Allergies, adverse reactions, alerts Allergen Type Reaction Severity Status Onset Date Tetracycline Allergy to substance (disorder) Hives Moder ate Active N/A History of medication use Medication Class Instructions Start Date End Date Aspirin EC 81 mg Tab delayed rel 1 tablet orally daily 2024-06-14 No Data Available Daily Value Multivitamin Tab once a day 2024-06-14 No Data Available Problem List Problem Status Onset Date Resolved Date Synopsis Hypertension Inactive 2024-06-14 N/A With meds Diabetes Active 2024-06-14 N/A Educated on ea ting low carb, sugar, fat diet, and exercise at least 150 minutes a week Systolic heart failure Active 2024-06-14 N/A Edvin thomas meds madalyn sees Accounting Manager Assistant Controller Morbid obesity Active 2024-06-14 N/A Recommende d diet and exercise as much as safely possible Encounters Encounters Type Facility Date of Service Diagnosis/Co mplaint Outpatient visit for evaluation and management of new patient, including medically appropriate examination and low level of medical decision making, total time 30-44 minutes [facility] [place] 06/14/2024 Unspecified systolic (congestive) heart failureHypertensive heart disease with heart failureType 2 diabetes mellitus without complicationsMorbid (severe) obesity due to excess caloriesBody mass index (BMI) 40.0-44.9, adult Vital Signs Date of Collection Vitals 2024-06-14 12:00:00 Height - 177.8 cmWei ght - 127.01 kgBody Mass Index (BMI) - 40.18 kg/m2 Social History Sex Male History of Procedures Procedures Service Procedure code Service date Servicing provider Phone# Outpatient visit for evaluation and management of new patient, including medically appropriate examination and low level of medical decision making, total time 30-44 minutes [id number] 2024-06-14 No Data Available No Data Availa ble Functional Status Functional Category Effective Dates Completely independent 2024-06-14 Mental Status No Information Assessments Date of Service Assessments 2024-06-14 12:00:00 DiabetesSystolic hea rt failureMorbid obesityHypertension Plan of Care Date of Service Plans 2024-06-14 12:00:00 Educated on eating l ow carb, sugar, fat diet, and exercise at least 150 minutes a weekOn GDMT meds and followed by CardiologyRecommended diet and exercise as much as safely possibleStable with diet and meds Goals Date Goal 2024-06-14 Educated on Entresto and recommended to speak to Accounting Manager Assistant Controller about starting med 2024-06-14 Eat a low sodium fat , carb diet and exercise at least 150 minutes a week or as much as safely tolerated 2024-06-14 Recommend advance di rective 2024-06-14 Recommend Cologuard or Colonoscopy 2024-06-14 Recommend daily weig hts 2024-06-14 Recommend to speak w [facility] Accounting Manager Assistant Controller about taking diuretic 2024-06-14 Recommend 2024-06-14 Educated to wash up thoroughly after voiding to prevent yeast infection Health Concerns Date Concern 2024-06-14 Healthy House Calls is a service that involves a physician or advanced practice provider conducting comprehensive assessments in your patient s home or virtually to address crucial areas such as chronic conditions, quality gaps, social concerns, fall risk prevention, and various screenings. Please note that your patient will remain attributed to you even though they are participating in this service. If you have any questions, please reach out directly to our team at the phone number above.Ashok Dias is a pleasant 53 y/o (1970), male, was seen today for a Healthy House Call virtual video visit. Patient read rights and responsibilities and consented to treatment. The purpose of this summary is to update you on the patient's current health status and share any relevant findings from the examination. Mr. Dias looks well and presents with no signs of acute distress. He is a good historian of his health history and reports Heart Failure that is sometimes uncontrolled. No acute distress today. Educated and recommended he speak with his Accounting Manager Assistant Controller about starting Entresto in place of Lisinopril after a 36 hour wash-out period. 2024-06-14 Recommendations: 2024-06-14 Diabetes 2024-06-14 Systolic heart failu re 2024-06-14 Morbid obesity 2024-06-14 Hypertension
--- OUTSIDE RECORDS SUMMARY | 2024-09-17 10:17 | XMS_ITS | Continuity of Care Document ---
Author Name [facility] Address [address] [place] [address] Organization [facility] Care Team Providers Care Windmill Mechanic Name Role Phone [facility] Unavailable Unavailable Problems Problem Status Onset Date Problem Type Date of Resolution Comments Source Obstructive sleep apnea syndrome (disorder) Active Condition Hypertensive heart disease (disorder) Active Condition Systolic heart failure (disorder) Active Condition Hypertensive heart disease with heart failure Diagnosis Body mass index (BMI) 45.0-49.9, adult Diagnosis Acute on chronic diastolic (congestive) heart failure Diagnosis Hypokalemia Diagnosis Type 2 diabetes mellitus with hyperglycemia Diagnosis Do not resuscitate Diagnosis Major depressive disorder, single episode, unspecified Diagnosis Patient's other noncompliance with medication regimen Diagnosis tank terminal gauger (current) use of oral hypoglycemic drugs Diagnosis Sciatica, unspecified side Active Diagnosis Weakness Active Diagnosis Sciatica, left side Active Diagnosis Dyspnea, unspecified Active Diagnosis Hypertensive emergency Active Diagnosis Sciatica (disorder) Diagnosis Hypo-osmolality and or hyponatremia (disorder) Diagnosis Acidosis (disorder) Diagnosis Atelectasis (disorder) Diagnosis Body mass index 40+ - severely obese (finding) Diagnosis Chronic diastolic heart failure (disorder) Diagnosis Hypertensive heart failure (disorder) Diagnosis Type II diabetes mellitus without complication (disorder) Diagnosis Morbid obesity (disorder) Diagnosis 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) Diagnosis Mixed hyperlipidemia (disorder) Diagnosis Dehydration (disorder) Diagnosis Hypovolemia Diagnosis Obstructive sleep apnea syndrome (disorder) Diagnosis Chronic pain (finding) Diagnosis Gastroesophageal reflux disease without esophagitis (disorder) Diagnosis Long-term current use of aspirin (situation) Diagnosis Long-term current use of oral hypoglycemic medication Diagnosis Family history: Cardiovascular disease (context-dependent category) Diagnosis Family history of alcoholism (context-dependent category) Diagnosis Family history: Diabetes mellitus (context-dependent category) Diagnosis Fall on same level (finding) Diagnosis Place of occurrence of accident or poisoning, noninstitutional place of residence (environment) Diagnosis Non-steroidal anti-inflammatory drug adverse reaction (disorder) Diagnosis Hypertensive emergency (disorder) Diagnosis Systolic heart failure (disorder) Diagnosis Hyperglycemia due to type 2 diabetes mellitus (disorder) Diagnosis Depressive disorder (disorder) Diagnosis Noncompliance with medication regimen (finding) Diagnosis Noncompliance (finding) Diagnosis Sciatica (disorder) Diagnosis Allergies, Adverse Reactions, Alerts Substance Category Reaction Severity Reaction type Status Date Reported Comments Source tetracycline Assertion puritis, hives Drug allergy [facility] Consultation Notes Results Value Date Source Echo Transthoracic Limited Transthoracic Echocardiography Report (TTE) Demographics Patient Name NGUYỄN BEARD Gender Male RAJINDER [facility] Number [id number] Date of Study 07/31/2018 Attending Physician Dorota Morgan MD Visit Number [id number] Export Coordinator Arianna Sood, [facility] [place] Date of 1970 Interpreting Suzanne Briones Physician Age 47 year(s) Ordering Physician Dorota Morgan MD Procedure Type of Study TTE procedure:Echo Transthoracic Limited , Limited 2D, M-mode. Indications:Z13.6 Screening for Cardiovascular Condition. Study Status: Routine Patient Status: Out-Patient Study Location: [facility] Technical Quality: Technically difficult exam due to body habitus. Contrast Medium: Intravenous Definity was given. Height: 70 inches Weight: 320 pounds BSA: 2.55 m HR: 66 bpm BP: 131/82 mmHg Conclusions Summary Technically difficult examination. Left ventricular size was normal. Left ventricular systolic function was mildly reduced. Ejection fraction was estimated at 45 %. There was mild global hypokinesis of the left ventricle. Signature Findings Left Ventricle Left ventricular size was normal. Left ventricular systolic function was mildly reduced. Ejection fraction was estimated at 45 %. There was mild global hypokinesis of the left ventricle. Great Vessels The IVC was normal in size and course. Respirophasic changes were normal. Pericardial Effusion No evidence of pericardial effusion. Structures Left Ventricle Diastolic Dimension: 4.62 cm Systolic Dimension: 3.23 cm Septum Diastolic: 1.41 cm PW Diastolic: 1.3 cm FS: 30.1 % EF Estimated: 45 % LV EDV/LV EDV Index: 131.43 ml/52 m Right Ventricle Diastolic Dimension: 3.09 cm [id number]^[email or web address]= [id number] URL Echo Transthoracic Complete Transthoraci c Echocardiography Report (TTE) Demographics Patient Name NGUYỄN BEARD Gender Male RAJINDER U Number [id number] Date of Study 05/14/2018 Attending Physician Bryan Jones Visit Number [id number] Export Coordinator Vince Smith, [facility] [place] Date of 1970 Interpreting Alphonso Raygoza MD Physician Age 47 year(s) Ordering Physician Lety Winslow MD Procedure Type of Study TTE procedure:Echo Transthoracic Complete, Complete 2D, M-mode, Complete Spectral Doppler, Color Flow. Indications:I50.9 Heart Failure. Study Status: Routine Patient Status: In-Patient Patient Location: 4W Study Location: Bedside Technical Quality: Limited visualization due to body habitus. Contrast Medium: Intravenous Definity was given. Amount - 3 ml Height: 70 inches Weight: 332 pounds BSA: 2.59 m HR: 90 bpm BP: 189/113 mmHg Conclusions Summary Technically difficult examination. Left ventricular size was mildly increased. Wall thickness was moderately increased. Systolic function was moderately reduced. Estimated LVEF: 37%. . Mild-moderate LV global hypokinesis. Right ventricular size was normal. Systolic function was normal. Estimated RVSP is mildly increased : 42 mm hg. Mild aortic regurgitation. Signature Findings Left Ventricle Left ventricular size was mildly increased. Wall thickness was moderately increased. Systolic function was moderately reduced. Estimated LVEF: 37%. . Mild-moderate LV global hypokinesis. Right Ventricle Right ventricular size was normal. Systolic function was normal. Estimated RVSP is mildly increased : 42 mm hg. Left Atrium Left atrial size was normal. Right Atrium Right atrial size was normal. Great Vessels Aortic root exhibited normal size. The IVC was normal in size and course. Respirophasic changes were normal. Pericardial Effusion There was no pericardial effusion. Mitral Valve Mitral valve structure was normal. There was normal leaflet separation. The transmitral velocity was within the normal range. There was no evidence for mitral stenosis. There was trace mitral regurgitation. Aortic Valve The aortic valve was trileaflet. Leaflets revealed normal thickness and normal cuspal separation. Transaortic velocity was within the normal range. There was no aortic stenosis. There was mild aortic regurgitation. Tricuspid Valve Tricuspid valve structure was normal. There was normal leaflet separation. There was no evidence for tricuspid stenosis. There was mild tricuspid regurgitation. Pulmonic Valve Pulmonic valve structure was not well visualized. The transpulmonic velocity was within the normal range. There was no evidence for pulmonic stenosis. There was no pulmonic regurgitation. Valves Mitral Valve Peak E-Wave: 1.26 m/s Peak A-Wave: 0.63 m/s E/A Ratio: 2.02 Peak Gradient: 6.4 mmHg Deceleration Time: 211.7 msec Aortic Valve Peak Velocity: 1.5 m/s Area (Continuity):3.24 cm Peak Gradient: 8.98 mmHg Mean Velocity: 1.08 m/s AV VTI: 24.37 cm Mean Gradient: 5.07 mmHg AR Vmax: 3.48 m/s AR Peak Gradient: 48.41 mmHg Deceleration Time: 3097.6 msec LVOT Peak Velocity: 1 m/s Mean Velocity: 0.71 m/s Peak Gradient: 3.99 mmHg Mean Gradient: 2.28 mmHg LVOT Diameter: 2.24 cm LVOT VTI: 20.03 cm LVOT CO by Doppler: 111.11 l/min Tricuspid Valve TR Velocity: 3.12 m/s Pulmonic Valve Peak Velocity: 0.73 m/s Peak Gradient: 2.13 mmHg Acceleration Time: 79.6 msec Structures Left Atrium LA Dimension: 4.36 cm LA Volume: 55.65 ml LA Volume Index: 21ml/m Left Ventricle Diastolic Dimension: 6.23 cm Systolic Dimension: 4.71 cm Septum Diastolic: 1.31 cm PW Diastolic: 1.35 cm FS: 24.4 % LV EDV/LV EDV Index: 120.33 ml/46 m LVOT Diameter: 2.24 cm Right Ventricle Diastolic Dimension: 3.31 cm Great Vessels Aorta Aortic Root: 2.98 cm LVOT Diameter: 2.24 cm CD:[id number]^[email or web address]= [id number] HN URL Echo Transthoracic Complete Transthoraci c Echocardiography Report (TTE) Demographics Patient Name NGUYỄN Grayson Gender Male [facility] Number [id number] Date of Study 11/29/2016 Attending Physician Visit Number [id number] Export Coordinator Michael Louie Date of 1970 Interpreting Gregoria Haines MD Physician Age 46 year(s) Ordering Physician Oniel Iglesias DO Procedure Type of Study TTE procedure:Echo Transthoracic Complete, Complete 2D, M-mode, Complete Spectral Doppler, Color Flow. Indications:R79.89 Abnormal Blood Chemistry BNP. Study Status: Routine Patient Status: Out-Patient Study Location: [facility] Contrast Medium: Intravenous Definity was given. BSA: 2.62 m HR: 81 bpm BP: 179/132 mmHg Allergies - tetracycline:Reaction - OtherSensitivity - Allergy(Reaction: puritis; hives ). Conclusions Summary There was mild -moderate eccentric aortic regurgitation. Ejection fraction was estimated to be 55 %. Overall regional wall motion was normal. The left ventricular wall thickness was Mildly increased. Doppler parameters were consistent with Class 1 diastolic dysfunction. Signature Findings Left Ventricle Left ventricular size was normal. Systolic function was normal. Ejection fraction was estimated to be 55 %. Overall regional wall motion was normal. The left ventricular wall thickness was Mildly increased. Doppler parameters were consistent with Class 1 diastolic dysfunction. Right Ventricle Right ventricular size was normal. Systolic function was normal. Wall thickness was normal. The systolic pressure could not be accurately determined. Left Atrium Left atrial size was normal. Right Atrium Right atrial size was normal. Great Vessels Aortic root exhibited normal size. Pericardial Effusion No evidence of pericardial effusion. Mitral Valve Mitral valve structure was normal. There was normal leaflet separation. The transmitral velocity was within the normal range. There was no evidence for stenosis. There was no regurgitation. Aortic Valve The aortic valve was trileaflet. Leaflets revealed normal thickness and normal cuspal separation. Transaortic velocity was within the normal range. There was no stenosis. There was mild -moderate eccentric aortic regurgitation. Tricuspid Valve Tricuspid valve structure was normal. There was normal leaflet separation. The transtricuspid velocity was within the normal range. There was no evidence for tricuspid stenosis. There was no significant regurgitation. Pulmonic Valve The pulmonic valve was not well visualized. Valves Mitral Valve Peak E-Wave: 0.55 m/s Peak A-Wave: 0.84 m/s MV Peak Velocity: 0.87 m/s E/A Ratio: 0.65 Peak Gradient: 1.2 mmHg Mean Velocity: 0.51 m/s Deceleration Time: 360.2 msec Mean Gradient: 1.18 mmHg Area (continuity): 4.27 cm Aortic Valve Peak Velocity: 1.28 m/s Area (Continuity):3.15 cm Peak Gradient: 6.56 mmHg Mean Velocity: 0.94 m/s AV VTI: 20.15 cm Mean Gradient: 3.76 mmHg LVOT Peak Velocity: 1.08 m/s Mean Velocity: 0.77 m/s Peak Gradient: 4.62 mmHg Mean Gradient: 2.59 mmHg LVOT Diameter: 2.11 cm LVOT VTI: 18.19 cm LVOT CO by Doppler: 87.74 l/min Tricuspid Valve TR Velocity: 1.74 m/s Pulmonic Valve Peak Velocity: 0.93 m/s Peak Gradient: 3.45 mmHg Structures Left Atrium LA Dimension: 3.71 cm LA Volume: 37.87 ml LA Volume Index: 14ml/m Left Ventricle Diastolic Dimension: 5.25 cm Systolic Dimension: 3.32 cm Septum Diastolic: 1.17 cm PW Diastolic: 1.09 cm FS: 36.8 % EF Estimated: 55 % LV EDV/LV EDV Index: 163.77 ml/63 m LVOT Diameter: 2.11 cm Right Ventricle Diastolic Dimension: 2.88 cm Great Vessels Aorta Aortic Root: 3.73 cm LVOT Diameter: 2.11 cm Encounters Location Location Details Encounter Type Encounter Number Reason For Visit Attending Provider ADM Date DC Date Status Source IMD IMD OUTPATIENT [id number] 3 MO FU[facility]DM[facility]HAL [facility]LABS [facility] [place] [place] [facility] JCD JCD Between Visit [id number] 01/06 23:59 :59 Discharge d [facility] FGL FGL OUTPATIENT [id number] WEEK F/U [facility]GL OUTPATIENT [id number] wk f/u Sydnie Gov-Bebo [facility] FGL OUTPATIENT [id number] 2 MONTH F/U [facility] OUTPATIENT [id number] wk f/u Myra Kolker [facility] FGR FGR OUTPATIENT [id number] EST CARE Sarath Barakat [facility] FBL FBL OUTPATIENT [id number] Adjusting for follow up, was just in wed Myra Kolker [facility]BL OUTPATIENT [id number] Extended cough, potential for bronchiti s Myra Vinson [facility]GL FGL OUTPATIENT [id number] annual physical / medicatio n refills [facility] DIAGNOSTIC TEST [id number] cpap/bipa p titration Harris Engle Cancel [facility] FBL FBL OUTPATIENT [id number] EST [place]le [facility] DIAGNOSTIC TEST [id number] HAL Shelley Jakobdahl Cancel [facility] DIAGNOSTIC TEST [id number] Shelley Ringdahl Cancel [facility] FGL [facility] OUTPATIENT [id number] 2 month f/up, DM II, controlle d Rona Lynne [facility]PG [facility]PG OUTPATIENT [id number] 1 WK F/U Cancel [facility]
[2024-09-17 18:07] LABS: Hematocrit 53.8 % (42.0-52.0); Hemoglobin 17.3 g/dL (14.0-18.0); Mean Corpuscular HGB Conc 32.2 g/dl (32-36); Mean Corpuscular Hemoglobin 28.7 pg (26-34); Mean Corpuscular Volume 89.4 fl (80-100); Platelet Count Result 251 k/mm3 (150-375); Red Blood Count 6.02 M/mm3 (4.6-6.20); White Blood Count 8.2 K/mm3 (4.5-10.0)
[2024-09-17 18:28] LABS: Alanine Aminotransferase 41 U/L (6-50); Albumin Level 4.0 g/dL (3.5-5.1); Alkaline Phosphatase 68 U/L (38-126); Anion Gap 9 mmol/L (4-12); Aspartate Amino Transferase 76 U/L (17-59); Bilirubin,Total 0.6 mg/dL (0.2-1.3); Blood Urea Nitrogen 13 mg/dL (9-20); Calcium 9.1 mg/dL (8.4-10.2); Carbon Dioxide 28 mmol/L (22-30); Chloride 100 mmol/L (98-107); Cholesterol 153 mg/dL (0-200); Estimated Glomerular Filt Rate > 60; Glucose 220 mg/dL (65-110); HDL Direct 60 mg/dL; Potassium 3.9 mmol/L (3.4-5.0); Sodium 137 mmol/L (137-145); Total Protein 7.6 g/dL (6.3-8.2); Triglycerides 116 mg/dL (<150)
[2024-09-17 19:39] LABS: Hemoglobin A1C 8.5 % (<5.7)
[2024-09-17 21:59] LABS: MALB Creatinine Ratio 203.1 mg/g (0-30)
== END 2024-09-17 10:14 | disposition home or self-care (01) ==
LOC: ANHGOSHLAB 10:14
PROVIDERS: PCP Nurse Practitioner Family; Visit Provider Nurse Practitioner Family
DX: I11.0 Hypertensive heart disease with heart failure (principal); I50.32 Chronic diastolic (congestive) heart failure; E11.9 Type 2 diabetes mellitus without complications; E66.01 Morbid (severe) obesity due to excess calories; Z68.42 Body mass index [BMI] 45.0-49.9, adult
CPT/HCPCS: 36415; 80053; 80061; 82043; 83036; 85027